=== PATIENT | male | born 1945 | race Caucasian/White ===

== ENCOUNTER 2017-02-17 01:45 | Emergency (ER) | payer MEDICARE, OTHER ==
[2017-02-17] MEDS ORDERED: Nitroglycerin 0.4 MG Tab.SL SL ONE (02:47)
[2017-02-17] MEDS ORDERED: Aspirin 81 MG Tab.Chew PO ONE ×2 (02:58)
[2017-02-17 03:02] LABS: CHLORIDE,CL 101 mEq/L (98-106); SODIUM,NA 138 mEq/L (136-145)
--- NOTE | 2017-02-17 03:11 | EDM.PDOC ---
<Valarie Cid - Last Filed: 02/17/17 09:17> ED HPI GENERAL MEDICAL PROBLEM - General Chief Complaint: General Stated Complaint: L SHOULDER, NECK, ELBOW PAIN Time Seen by Provider: 02/17/17 02:20 - Related Data Allergies Allergy/AdvReac Type Severity Reaction Status Date / Time No Known Allergies Allergy Verified 02/17/17 02:49 Home Meds: Home Meds Apixaban [Eliquis] 5 mg PO BID 02/17/17 [History] Finasteride [Finasteride] 5 mg PO DAILY 02/17/17 [History] Losartan/Hydrochlorothiazide [Losartan-HCTZ 100-25 MG] 1 tab PO DAILY 02/17/17 [ History] Lysine HCl [l-Lysine] 1,000 mg PO DAILY 02/17/17 [History] Meloxicam 15 mg PO DAILY #14 tablet 02/17/17 [Rx] Tamsulosin HCl [Tamsulosin HCl] 0.4 mg PO DAILY 02/17/17 [History] Testosterone [Testosterone] 5 gm PO DAILY 02/17/17 [History] glipiZIDE [Glipizide ER] 10 mg PO DAILY 02/17/17 [History] Course - Vital Signs Last Recorded V/S: Last Vital Signs Temp 35.8 C 02/17/17 08:37 Pulse 65 02/17/17 08:37 Resp 20 02/17/17 08:37 BP 137/72 02/17/17 08:37 Pulse Ox 95 02/17/17 08:37 - Orders/Labs/Meds Orders: Active Orders 24 hr Category Date Time Status Telemetry Monitoring [Cardiac Monitoring] [RC] . Care 02/17/17 01:00 Active DIRECTED Chest 2V [CR] Stat Exams 02/17/17 02:27 Taken Shoulder Comp Lt [CR] Stat Exams 02/17/17 08:40 Taken Labs: Laboratory Tests 02/17/17 02/17/17 02/17/17 Range/Units 02:31 02:31 02:31 WBC 6.1 (5.0-10.0) 10^3/uL RBC 4.85 (4.50-6.00) 10^6/uL Hgb 15.6 (14.0-18.0) g/dL Hct 45.6 (40.0-54.0) % MCV 94.0 (82.0-94.0) fL MCH 32.2 H (27.0-32.0) pg MCHC 34.2 (33.0-38.0) g/dL RDW Coeff of Lucian 13.4 (11.0-15.0) % Plt Count 183 (150-400) 10^3/uL Neut % (Auto) 63.0 (35-85) % Lymph % (Auto) 23.5 (10-55) % [place] % (Auto) 9.1 (0-16) % Eos % (Auto) 3.9 (0-5) % Baso % (Auto) 0.5 (0-3) % Neut # (Auto) 3.87 (1.80-7.00) 10^3/uL Lymph # (Auto) 1.44 (1.00-4.80) 10^3/uL [place] # (Auto) 0.56 (0.00-0.80) 10^3/uL Eos # (Auto) 0.24 (0.00-0.45) 10^3/uL Baso # (Auto) 0.03 10^3/uL PT 10.7 (9.7-12.3) SEC INR 0.99 (0.92-1.18) APTT 29.7 (24.5-30.9) SEC D-Dimer, Quantitative 0.49 (0.00-0.50) Sodium 138 (136-145) mEq/L Potassium 4.1 (3.5-5.0) mEq/L Chloride 101 (98-106) mEq/L Carbon Dioxide 30 (21-32) mmol/L BUN 17 (7-18) mg/dL Creatinine 1.2 (0.7-1.3) mg/dL Est Cr Clr Drug Dosing 52.25 mL/min Estimated GFR (MDRD) 59 L (>=60) mL/min Glucose 246 H (75-99) mg/dL Calcium 9.4 (8.4-10.1) mg/dL Magnesium 1.9 (1.8-2.4) mg/dL Lactate Dehydrogenase 167 (100-190) U/L Creatine Kinase 116 (35-232) U/L Troponin I < 0.017 (0.00-0.06) ng/mL 02/17/17 Range/Units 07:00 WBC (5.0-10.0) 10^3/uL RBC (4.50-6.00) 10^6/uL Hgb (14.0-18.0) g/dL Hct (40.0-54.0) % MCV (82.0-94.0) fL MCH (27.0-32.0) pg MCHC (33.0-38.0) g/dL RDW Coeff of Lucian (11.0-15.0) % Plt Count (150-400) 10^3/uL Neut % (Auto) (35-85) % Lymph % (Auto) (10-55) % [place] % (Auto) (0-16) % Eos % (Auto) (0-5) % Baso % (Auto) (0-3) % Neut # (Auto) (1.80-7.00) 10^3/uL Lymph # (Auto) (1.00-4.80) 10^3/uL [place] # (Auto) (0.00-0.80) 10^3/uL Eos # (Auto) (0.00-0.45) 10^3/uL Baso # (Auto) 10^3/uL PT (9.7-12.3) SEC INR (0.92-1.18) APTT (24.5-30.9) SEC D-Dimer, Quantitative (0.00-0.50) Sodium (136-145) mEq/L Potassium (3.5-5.0) mEq/L Chloride (98-106) mEq/L Carbon Dioxide (21-32) mmol/L BUN (7-18) mg/dL Creatinine (0.7-1.3) mg/dL Est Cr Clr Drug Dosing mL/min Estimated GFR (MDRD) (>=60) mL/min Glucose (75-99) mg/dL Calcium (8.4-10.1) mg/dL Magnesium (1.8-2.4) mg/dL Lactate Dehydrogenase (100-190) U/L Creatine Kinase (35-232) U/L Troponin I < 0.017 (0.00-0.06) ng/mL Meds: Medications Discontinued Medications Generic Name Dose Route Start Last Admin Trade Name Freq PRN Reason Stop Dose Admin Aspirin 81 mg 02/17/17 02:58 02/17/17 03:23 Aspirin PO 02/17/17 02:59 Not Given ONETIME ONE Aspirin 324 mg 02/17/17 02:58 02/17/17 03:02 Aspirin PO 02/17/17 02:59 324 mg ONETIME ONE Administration Hydromorphone HCl 1 mg 02/17/17 03:43 02/17/17 05:08 Dilaudid IVPUSH 1 mg Q1H PRN Administration Left arm pain Nitroglycerin 0.4 mg 02/17/17 02:47 02/17/17 02:52 Nitrostat SL 02/17/17 02:48 0.4 mg ONETIME ONE Administration - Re-Assessments/Exams Free Text/Narrative Re-Assessment/Exam: 02/17/17 09:00 Patient doing well this am. States pain down to a 2. Repeat troponin negative. Exam of his shoulder completed, negative. Shoulder xray relatively benign. Spoke with Dr. Urbano about exam/plan. Departure - Departure Time of Disposition: 09:18 Disposition: Home, Self-Care 01 Condition: Good Clinical Impression: Chest pain, Shoulder pain, left - Discharge Information Prescriptions: Meloxicam 15 mg PO DAILY #14 tablet Referrals: Gregorio Urbano MD [Primary Care Provider] - Forms: ED Department Discharge Additional Instructions: 1. Rest shoulder 2. Meloxicam 15 mg daily 3. Ice or heat as needed 4. Cardiolyte stress test on February 26 at [address] Urbano with any questions or concerns. - My Orders Last 24 Hours: My Active Orders 02/17/17 01:00 Telemetry Monitoring [Cardiac Monitoring] [RC] . DIRECTED 02/17/17 02:27 Chest 2V [CR] Stat - Assessment/Plan Last 24 Hours: My Active Orders 02/17/17 01:00 Telemetry Monitoring [Cardiac Monitoring] [RC] . DIRECTED 02/17/17 02:27 Chest 2V [CR] Stat <Kathya Gardner - Last Filed: 02/17/17 16:45> ED HPI GENERAL MEDICAL PROBLEM - General Source of Information: Reports: Patient, RN History Limitations: Reports: No Limitations - History of Present Illness INITIAL COMMENTS - FREE TEXT/NARRATIVE: Patient presents with left shoulder pain radiating to the neck and jaw region since 1400 this afternoon. He states was moving stuff from camper into the home when he noted pain 6/10 in this region . He states there was nothing he could do to relieve it and nothing seemed to make it worse. He denies diaphoresis, nausea or syncope. He indicated just rested through out the day. This evening he went to bed around 2330 and was unable to get comfortable persistent discomfort in the left arm radiating into his lateral neck and jaw region. He has not taken any medications at home. He affirms HTN, NIDDM-(mild) glucose 275 this am, Factor 5 Leiden and obesity. 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: Other (see below) (Rest) Left Neck Pain Score (Numeric/FACES): 7 Past Medical History HEENT History: Reports: Hard of Hearing, Impaired Vision Cardiovascular History: Reports: Blood Clots/VTE/DVT (Factor 5 Leiden), Hypertension Respiratory History: Reports: None Gastrointestinal History: Reports: None Genitourinary History: Reports: BPH, Prostate Disorder Musculoskeletal History: Reports: None, Arthritis, Osteoarthritis (Bilateral Knee Arthroplasty) Neurological History: Reports: None Psychiatric History: Reports: None Endocrine/Metabolic History: Reports: Diabetes, Type II, Obesity/BMI 30+ Hematologic History: Reports: Anticoagulation Therapy, Bleeding Disorder Immunologic History: Reports: None - Infectious Disease History Infectious Disease History: Reports: None - Past Surgical History GI Surgical History: Reports: Cholecystectomy Musculoskeletal Surgical History: Reports: Joint Replacement, Knee Replacement ( L Ankle recoonstruction) Social & Family History - Family History Family Medical History: Noncontributory - Tobacco Use Smoking Status *Q: Former Smoker Tobacco Use Within Last Twelve Months: No - Tobacco Core Measures Tobacco Use/Smoking Within Last 30 Days: No - Caffeine Use Caffeine Use: Reports: Coffee - Alcohol Use Alcohol Use History: Yes Alcohol Use Frequency: Rarely - Living Situation & Occupation Living situation: Reports: , with Spouse Occupation: Retired ED ROS GENERAL - Review of Systems Review Of Systems: See Below Constitutional: Reports: No Symptoms HEENT: Reports: Glasses Respiratory: Reports: No Symptoms Cardiovascular: Reports: Other (Left arm radiating to neck and jaw) Endocrine: Reports: High Glucose GI/Abdominal: Reports: No Symptoms : Reports: Frequency Musculoskeletal: Reports: Neck Pain, Shoulder Pain, Arm Pain, Muscle Pain Skin: Reports: No Symptoms Neurological: Reports: No Symptoms Psychiatric: Reports: No Symptoms Hematologic/Lymphatic: Reports: Other (Factor 5 Leiden) Immunologic: Reports: No Symptoms ED EXAM, GENERAL - Physical Exam Exam: See Below Exam Limited By: No Limitations General Appearance: Alert, WD/WN, Mild Distress Eye Exam: Bilateral Eye: EOMI, Normal Fundi, Normal Inspection, PERRL Ears: Normal External Exam, Normal Canal, Hearing Grossly Normal Ear Exam: Bilateral Ear: Auricle Normal, Canal Normal, TM normal Nose: Normal Inspection, Normal Mucosa, No Blood Throat/Mouth: Normal Inspection, Normal Lips, Normal Teeth, Normal Gums, Normal Oropharynx, Normal Voice, No Airway Compromise Head: Atraumatic, Normocephalic Neck: Normal Inspection, Supple, Non-Tender, Full Range of Motion. No: Carotid Bruit, Limited Range of Motion Respiratory/Chest: No Respiratory Distress, Lungs Clear, Normal Breath Sounds, No Accessory Muscle Use, Chest Non-Tender Cardiovascular: Normal Peripheral Pulses, Regular Rate, Rhythm, No Edema, No Gallop, No JVD, No Murmur, No Rub Peripheral Pulses: 2+: Carotid (L), Carotid (R), Brachial (L), Brachial (R), Radial (L), Radial (R), Dorsalis Pedis (L), Dorsalis Pedis (R) GI/Abdominal: Non-Tender (Male) Exam: Deferred Rectal (Males) Exam: Deferred Back Exam: Normal Inspection, Full Range of Motion Extremities: Normal Inspection, Normal Range of Motion, Non-Tender, No Pedal Edema, Normal Capillary Refill (No exacerbation of Left shoulder arm pain with movement) Neurological: Alert, Oriented, CN II-XII Intact, Normal Cognition, Normal Gait, Normal Reflexes, No Motor/Sensory Deficits Psychiatric: Normal Affect, Normal Mood Skin Exam: Warm, Dry, Intact, Normal Color, No Rash Lymphatic: No Adenopathy EKG INTERPRETATION EKG Date: 02/17/17 Rhythm: NSR (1 st degree V Block) - Problem List & Annotations (1) Neck pain on left side SNOMED Code(s): 88275255 Code(s): M54.2 - CERVICALGIA Status: Acute (2) Jaw pain SNOMED Code(s): 988803833 Code(s): R68.84 - JAW PAIN Status: Acute (3) Diabetes SNOMED Code(s): 59225286 Code(s): E11.9 - TYPE 2 DIABETES MELLITUS WITHOUT COMPLICATIONS Status: Acute Qualifiers: Diabetes mellitus type: type 2 - Problem List Review Problem List Initiated/Reviewed/Updated: Yes - Assessment/Plan Assessment:: Acute pain radiating to left neck and jaw. Diabetes/Poorly controlled HTN Factor 5 Leiden Obesity Plan: Will extended ER for Observation and pain control. Repeat Troponin @ 0700. Evaluation Dr. Urbano in am.
[2017-02-17] MEDS: HYDROmorphone 1 MG/ML Syringe IVPUSH PRN ×2 (03:51→05:08)
[2017-02-17 08:38] VITALS: BP 137/72
== END 2017-02-17 10:25 | disposition home or self-care (01) ==
LOC: CC.ED 01:45
DX: R07.9 Chest pain, unspecified (principal); M25.512 Pain in left shoulder; I10 Essential (primary) hypertension; E11.9 Type 2 diabetes mellitus without complications; E66.9 Obesity, unspecified; M19.90 Unspecified osteoarthritis, unspecified site; Z90.49 Acquired absence of other specified parts of digestive tract; Z79.899 Other long term (current) drug therapy
CPT/HCPCS: 36415; 71020; 73030; 80048; 82550; 83615; 83735; 84484; 85025; 85379; 85610; 85730; 96374; 96375; 96376; 99283; 99285; A9270; J1170; 93005; 93010

== ENCOUNTER 2017-12-04 11:15 | Emergency (ER) | payer MEDICARE, OTHER ==
[2017-12-04 11:25] VITALS: BP 149/87
[2017-12-04] MEDS: Ketorolac 10 MG Tab PO ONE (12:01)
--- NOTE | 2017-12-04 13:18 | EDM.PDOC ---
ED HPI GENERAL MEDICAL PROBLEM - General Chief Complaint: Lower Extremity Injury/Pain Stated Complaint: FELL OFF LADDER Time Seen by Provider: 12/04/17 11:50 - History of Present Illness INITIAL COMMENTS - FREE TEXT/NARRATIVE: Swetha is a 72-year-old male who presents to the ED via private vehicle with c/o left knee pain after falling off a ladder. He reports the injury happened 2 days ago and the pain has since worsened. He reports he has had bilateral TKA so he is worried about the hardware. He reports the pain is in his medial distal aspect of his knee. He reports he has been taking Tylenol without relief. Denies any N/T, redness, open sores. Denies any other injuries and LOC with fall. He denies hitting his head. 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: Reports: Acetaminophen Left Knee Pain Score (Numeric/FACES): 9 - Related Data Allergies Allergy/AdvReac Type Severity Reaction Status Date / Time No Known Allergies Allergy Verified 12/04/17 11:19 Home Meds: Home Meds Apixaban [Eliquis] 5 mg PO BID 02/17/17 [History] Finasteride 5 mg PO DAILY 02/17/17 [History] Losartan/Hydrochlorothiazide [Losartan-HCTZ 100-25 MG] 1 tab PO DAILY 02/17/17 [ History] Lysine HCl [l-Lysine] 1,000 mg PO DAILY 02/17/17 [History] Tamsulosin HCl 0.4 mg PO DAILY 02/17/17 [History] glipiZIDE [Glipizide ER] 10 mg PO DAILY 02/17/17 [History] Insulin Glarg,Human.Rec.Analog [Lantus Solostar] 50 units SUBCUT BEDTIME [History] Meloxicam 15 mg PO BID #20 tablet 12/04/17 [Rx] SitaGLIPtin [Januvia] 50 mg PO DAILY 12/04/17 [History] Past Medical History HEENT History: Reports: Hard of Hearing, Impaired Vision Cardiovascular History: Reports: Blood Clots/VTE/DVT, Hypertension Respiratory History: Reports: None Gastrointestinal History: Reports: None Genitourinary History: Reports: BPH, Prostate Disorder Musculoskeletal History: Reports: None, Arthritis, Osteoarthritis Neurological History: Reports: None Psychiatric History: Reports: None Endocrine/Metabolic History: Reports: Diabetes, Type II, Obesity/BMI 30+ Hematologic History: Reports: Anticoagulation Therapy, Bleeding Disorder Immunologic History: Reports: None - Infectious Disease History Infectious Disease History: Reports: None - Past Surgical History GI Surgical History: Reports: Cholecystectomy Musculoskeletal Surgical History: Reports: Joint Replacement, Knee Replacement Social & Family History - Family History Family Medical History: Noncontributory - Tobacco Use Smoking Status *Q: Never Smoker - Caffeine Use Caffeine Use: Reports: Coffee - Alcohol Use Days Per Week of Alcohol Use: 7 Number of Drinks Per Day: 1 Total Drinks Per Week: 7 - Recreational Drug Use Recreational Drug Use: No - Living Situation & Occupation Living situation: Reports: , with Spouse Occupation: Retired Review of Systems - Review of Systems Review Of Systems: ROS reveals no pertinent complaints other than HPI. ED EXAM, GENERAL - Physical Exam Exam: See Below Exam Limited By: No Limitations General Appearance: Alert, WD/WN, No Apparent Distress Peripheral Pulses: 2+: Posterior Tibial (L), Dorsalis Pedis (L) Extremities: Normal Inspection, Normal Range of Motion, Non-Tender, No Pedal Edema, Normal Capillary Refill, Joint Swelling (mild to L knee). No: Increased Warmth, Redness Neurological: Alert, Oriented, CN II-XII Intact, Normal Cognition, Normal Gait, Normal Reflexes, No Motor/Sensory Deficits Psychiatric: Normal Affect, Normal Mood Skin Exam: Warm, Dry, Intact, Normal Color, No Rash Course - Vital Signs Last Recorded V/S: Last Vital Signs Temp 95.9 F 12/04/17 11:22 Pulse 80 12/04/17 11:22 Resp 16 12/04/17 11:22 BP 149/87 H 12/04/17 11:22 Pulse Ox 99 12/04/17 11:22 - Orders/Labs/Meds Orders: Active Orders 24 hr Category Date Time Status Knee 3V Lt [CR] Routine Exams 12/04/17 Taken Meds: Medications Discontinued Medications Generic Name Dose Route Start Last Admin Trade Name Freq PRN Reason Stop Dose Admin Ketorolac Tromethamine 10 mg 12/04/17 11:58 12/04/17 12:01 Toradol PO 12/04/17 11:59 10 mg ONETIME ONE Administration - Re-Assessments/Exams Free Text/Narrative Re-Assessment/Exam: Xray results discussed with patient and . Xray negative for any acute findings. Departure - Departure Time of Disposition: 13:13 Disposition: Home, Self-Care 01 Condition: Good Clinical Impression: Left knee pain Qualifiers: Chronicity: acute Qualified Code(s): M25.562 - Pain in left knee - Discharge Information *PRESCRIPTION DRUG MONITORING PROGRAM REVIEWED*: No *COPY OF PRESCRIPTION DRUG MONITORING REPORT IN PATIENT ANANT: No Prescriptions: Meloxicam 15 mg PO BID #20 tablet Instructions: Knee Pain, Adult Referrals: Gregorio Urbano MD [Primary Care Provider] - Forms: ED Department Discharge Additional Instructions: Xray negative for evidence of hardware loosening, fracture, or other complication Ice knee at least 3 times daily for 20 minutes at a time until pain improves Augustus wrap to left knee during the day Elevate extremity when able Weight bearing as tolerated to LLE Meloxicam as needed for pain. Follow INR as directed by PCP Follow up with PCP if symptoms worsen or do not improve over the next week - My Orders Last 24 Hours: My Active Orders 12/04/17 Knee 3V Lt [CR] Routine - Assessment/Plan Last 24 Hours: My Active Orders 12/04/17 Knee 3V Lt [CR] Routine
== END 2017-12-04 13:20 | disposition home or self-care (01) ==
LOC: CC.ED 11:15
DX: M25.562 Pain in left knee (principal); I10 Essential (primary) hypertension; E11.9 Type 2 diabetes mellitus without complications; W11.XXXA Fall on and from ladder, initial encounter; Z79.899 Other long term (current) drug therapy
CPT/HCPCS: 73562-LT; 99283; A9270-GY

== ENCOUNTER 2020-12-16 11:35 | Observation (INO) | payer MEDICARE, OTHER ==
[2020-12-16] MEDS ORDERED: Nitroglycerin 0.4 MG Tab.SL SL PRN (12:07)
[2020-12-16] MEDS ORDERED: Aspirin 81 MG Tab.Chew PO ONE (12:09)
--- NOTE | 2020-12-16 12:12 | EDM.PDOC ---
ED HPI GENERAL MEDICAL PROBLEM - General Chief Complaint: General Stated Complaint: arm pain,headache,upset stomach Time Seen by Provider: 12/16/20 11:35 Source of Information: Reports: Patient History Limitations: Reports: No Limitations - History of Present Illness INITIAL COMMENTS - FREE TEXT/NARRATIVE: Swetha is a 75 year old male who presents to ER with complaints of left s houlder/jaw pain/anterior chest pain. States has had off an on for 2 days now but was worse this am. Pain occurs at rest. Does feel short of breath and nauseated with the pain. No diaphoresis. Pain is worse in the shoulder and left side of his neck. Notes left anterior chest pain but admits that is more mild. No heartburn or belching. No abdominal pain or vomiting. Denies any recent trauma to shoulder, no lifting injuries. History of hypertension/hyperlipidemia/diabetes. Last stress test was 2016. Duration: Day(s):, Getting Worse Location: Reports: Chest Quality: Reports: Ache Severity: Moderate Improves with: Reports: None Associated Symptoms: Reports: Chest Pain, Nausea/Vomiting, Shortness of Breath. 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 (see below) Other Treatments FRONT END WEB DESIGNER: none Left Upper Arm Pain Score (Numeric/FACES): 7 - Related Data Allergies Allergy/AdvReac Type Severity Reaction Status Date / Time nerve blocks Allergy Anaphylactic Uncoded 12/16/20 11:40 Shock Home Meds: Home Meds Apixaban [Eliquis] 5 mg PO BID 02/17/17 [History] Finasteride 5 mg PO DAILY 02/17/17 [History] Losartan/Hydrochlorothiazide [Losartan-HCTZ 100-25 MG] 1 tab PO DAILY 02/17/17 [History] Lysine HCl [l-Lysine] 1,000 mg PO DAILY 02/17/17 [History] Tamsulosin HCl 0.8 mg PO BEDTIME 02/17/17 [History] SitaGLIPtin [Januvia] 100 mg PO DAILY 12/04/17 [History] Insulin Lispro Prot/Lispro [HumaLOG Mix 75-25] 30 units SUBCUT QPM 12/16/20 [History] Insulin Lispro Prot/Lispro [HumaLOG Mix 75-25] 60 units SUBCUT QAM 12/16/20 [History] Simvastatin [Zocor] 20 mg PO BEDTIME 12/16/20 [History] amLODIPine Besylate [Amlodipine Besylate] 5 mg PO DAILY 12/16/20 [History] Past Medical History HEENT History: Reports: Hard of Hearing, Impaired Vision Cardiovascular History: Reports: Blood Clots/VTE/DVT, Hypertension Respiratory History: Reports: None Gastrointestinal History: Reports: None Genitourinary History: Reports: BPH, Prostate Disorder Musculoskeletal History: Reports: None, Arthritis, Osteoarthritis Neurological History: Reports: None Psychiatric History: Reports: None Endocrine/Metabolic History: Reports: Diabetes, Type II, Obesity/BMI 30+ Hematologic History: Reports: Anticoagulation Therapy, Bleeding Disorder Immunologic History: Reports: None - Infectious Disease History Infectious Disease History: Reports: None - Past Surgical History GI Surgical History: Reports: Cholecystectomy Musculoskeletal Surgical History: Reports: Joint Replacement, Knee Replacement Social & Family History - Family History Family Medical History: No Pertinent Family History - Tobacco Use Tobacco Use Status *Q: Unknown Ever Used Tobacco - Caffeine Use Caffeine Use: Reports: Coffee - Living Situation & Occupation Living situation: Reports: , with Spouse Occupation: Retired ED ROS GENERAL - Review of Systems Review Of Systems: See Below Constitutional: Denies: Fever, Chills, Malaise, Weakness, Decreased Appetite HEENT: Denies: Ear Pain, Rhinitis, Sinus Problem, Throat Pain, Vertigo Respiratory: Reports: Shortness of Breath. Denies: Cough Cardiovascular: Reports: Chest Pain, Lightheadedness. Denies: Edema Endocrine: Denies: Fatigue GI/Abdominal: Reports: Nausea. Denies: Abdominal Pain, Constipation, Diarrhea, Vomiting : Reports: No Symptoms Musculoskeletal: Reports: Neck Pain Skin: Reports: No Symptoms Neurological: Reports: No Symptoms Psychiatric: Reports: No Symptoms ED EXAM, GENERAL - Physical Exam Exam: See Below Exam Limited By: No Limitations General Appearance: Alert, WD/WN, No Apparent Distress Ears: Normal External Exam, Normal TMs Nose: Normal Inspection, Normal Mucosa, No Blood Throat/Mouth: Normal Inspection, Normal Oropharynx Head: Normocephalic Neck: Normal Inspection, Supple, Non-Tender Respiratory/Chest: No Respiratory Distress, Lungs Clear, Normal Breath Sounds Cardiovascular: Regular Rate, Rhythm GI/Abdominal: Normal Bowel Sounds, Soft, Non-Tender Extremities: Normal Inspection, Pedal Edema (trace) Neurological: Alert, Oriented Skin Exam: Warm, Dry #1 Interpretation EKG Date: 12/16/20 Rhythm: NSR [place]: Normal P-Wave: Present QRS: Normal ST-T: Normal QT: Normal Comparison: No Change Course - Vital Signs Last Recorded V/S: Last Vital Signs Temp 96.1 F L 12/16/20 11:35 Pulse 92 12/16/20 11:35 Resp 22 H 12/16/20 11:35 BP 166/87 H 12/16/20 11:35 Pulse Ox 96 12/16/20 11:35 - Orders/Labs/Meds Orders: Active Orders 24 hr Category Date Time Status EKG Documentation Completion [RC] STAT Care 12/16/20 11:44 Active Chest 2V [CR] Stat Exams 12/16/20 11:41 Ordered CBC WITH AUTO DIFF [HEME] Stat Lab 12/16/20 11:41 Ordered COMPREHENSIVE METABOLIC PN,CMP [CHEM] Stat Lab 12/16/20 11:41 Ordered CREATINE KINASE,CK [CHEM] Stat Lab 12/16/20 11:41 Ordered LACTATE DEHYDROGENASE,LDH [CHEM] Stat Lab 12/16/20 11:41 Ordered TROPONIN I [CHEM] Stat Lab 12/16/20 11:41 Ordered EKG 12 Lead [EK] Stat Ther 12/16/20 11:41 Ordered - Re-Assessments/Exams Free Text/Narrative Re-Assessment/Exam: 12/16/20 1300 labs all unremarkable. EKG unremarkable. Was given a nitro with drop in his blood pressure but did improve his pain to a 5. Did contact Dr. suh about admission. Advised if blood pressure high, start metoprolol. Will admit observation, repeat labs in 4 hours. Continue cardiac monitoring. Arrange for possible stress test tomorrow. Patient agrees with plan. Departure - Departure Time of Disposition: 13:20 Disposition: Refer to Observation Condition: Fair Clinical Impression: Angina at rest - Discharge Information *PRESCRIPTION DRUG MONITORING PROGRAM REVIEWED*: No *COPY OF PRESCRIPTION DRUG MONITORING REPORT IN PATIENT ANANT: No Sepsis Event Note (ED) - Evaluation Sepsis Screening Result: No Definite Risk - Focused Exam Vital Signs: Vital Signs Temp Pulse Resp BP Pulse Ox 12/16/20 11:35 96.1 F L 92 22 H 166/87 H 96 - Problem List & Annotations (1) Angina at rest SNOMED Code(s): 413003900 Code(s): I20.8 - OTHER FORMS OF ANGINA PECTORIS Status: Acute Priority: High Current Visit: Yes - Problem List Review Problem List Initiated/Reviewed/Updated: Yes - My Orders Last 24 Hours: My Active Orders 12/16/20 11:41 Chest 2V [CR] Stat CBC WITH AUTO DIFF [HEME] Stat COMPREHENSIVE METABOLIC PN,CMP [CHEM] Stat CREATINE KINASE,CK [CHEM] Stat LACTATE DEHYDROGENASE,LDH [CHEM] Stat TROPONIN I [CHEM] Stat EKG 12 Lead [EK] Stat 12/16/20 11:44 EKG Documentation Completion [RC] STAT - Assessment/Plan Admission H&P: Please use this note as an admission H&P Last 24 Hours: My Active Orders 12/16/20 11:41 Chest 2V [CR] Stat CBC WITH AUTO DIFF [HEME] Stat COMPREHENSIVE METABOLIC PN,CMP [CHEM] Stat CREATINE KINASE,CK [CHEM] Stat LACTATE DEHYDROGENASE,LDH [CHEM] Stat TROPONIN I [CHEM] Stat EKG 12 Lead [EK] Stat 12/16/20 11:44 EKG Documentation Completion [RC] STAT Assessment:: Angina at rest Plan: Cardiac monitoring, repeat labs in [address] suh aware of admission
[2020-12-16 12:28] LABS: CHLORIDE,CL 99 mEq/L (98-106); SODIUM,NA 135 mEq/L (136-145)
[2020-12-16] MEDS ORDERED: Acetaminophen 325 MG Tab PO PRN (13:20)
[2020-12-16] MEDS ORDERED: Sodium Chloride 0.9% 10 ML Syringe FLUSH PRN (13:20)
[2020-12-16] MEDS ORDERED: Ondansetron 4 MG Tab.DIS PO PRN (13:20)
[2020-12-16] MEDS ORDERED: 50% Dextrose in Water 50 ML Syringe IVPUSH PRN (14:38)
[2020-12-16] MEDS ORDERED: Glucagon,Human Recombinant 1 MG Vial IM PRN (14:38)
[2020-12-16] MEDS: Insulin NPH HUM/REG Insulin HM 100 UNIT/ML 3 ML Vial SQ SCH ×2 (17:31→21:07)
[2020-12-16] MEDS ORDERED: INSULIN LISPRO PROT SUBCUT SCH (20:00)
[2020-12-16] MEDS ORDERED: LISPRO SUBCUT SCH (20:00)
[2020-12-17 07:28] LABS: CHLORIDE,CL 103 mEq/L (98-106); SODIUM,NA 138 mEq/L (136-145)
[2020-12-17] MEDS ORDERED: LISPRO SUBCUT SCH (08:00)
[2020-12-17] MEDS ORDERED: Insulin NPH HUM/REG Insulin HM 100 UNIT/ML 3 ML Vial SQ SCH (08:00)
[2020-12-17] MEDS ORDERED: INSULIN LISPRO PROT SUBCUT SCH (08:00)
[2020-12-17 08:24] VITALS: BP 129/59; PULSE 68
[2020-12-17] MEDS ORDERED: Finasteride 5 MG Tab **PTOM PO SCH (09:00)
[2020-12-17] MEDS ORDERED: AMLODIPINE BESYLATE 5 MG PO SCH (09:00)
[2020-12-17] MEDS ORDERED: LOSARTAN PO SCH (09:00)
[2020-12-17] MEDS ORDERED: HYDROCHLOROTHIAZIDE PO SCH (09:00)
[2020-12-17] MEDS ORDERED: LYSINE HCL 500 MG PO SCH (09:00)
[2020-12-17] MEDS ORDERED: SITAGLIPTIN 100 MG PO SCH (09:00)
[2020-12-17] MEDS ORDERED: Apixaban 5 MG Tab **PTOM PO SCH (09:00)
[2020-12-17] MEDS ORDERED: Tamsulosin 0.4 MG Cap.ER **PTOM PO SCH (20:00)
[2020-12-17] MEDS ORDERED: Simvastatin 20 MG Tab PO SCH (20:00)
--- NOTE | 2020-12-19 16:12 | DISCH ---
ADMISSION DIAGNOSES: 1. Atypical chest pain. 2. Possible angina. DISCHARGE DIAGNOSIS: 1. ATYPICAL CHEST PAIN. 2. HYPERTENSION. 3. TYPE 2 DIABETES, REQUIRING INSULIN. 4. HYPERLIPIDEMIA. HISTORY: Swetha is a 75-year-old male, well known to me, presented with left shoulder, jaw, and anterior chest pain. It had been on and off for a few weeks. He felt the pain occurred at rest when he talked to Tonya Cid on admit. When I discussed this with him, he said it seems to be worse in the shoulder and down into his arm at times, and admits that it usually takes some degree of exercise to bring it on. He does not report any real heaviness or shortness of breath associated with Tonya who saw him and did an appropriate evaluation which was negative for any cardiac ischemia with a negative EKG and troponin. His blood pressure was up slightly and she admitted him to observation for this. HOSPITAL COURSE: The patient was stable while here. His blood pressures were well-controlled throughout his entire stay. He had no further chest pain. He mainly complained of some left shoulder pain and did have some numbness or tingling running down his arm at times, but essentially has had no further pain since he has been here. He had a followup EKG and cardiac enzymes, they were normal. We are going to set him up for a Lexiscan this . I will see him at that time and followup as well. At this time, the patient is stable for discharge. COMPLICATIONS: During stay were none. CONSULTATIONS: None. DISPOSITION: Discharged home. MAGNUS/GIANA /[id number]
== END 2020-12-17 11:31 | disposition home or self-care (01) ==
LOC: CC.ED 11:35 → CC.MS 12:49 → UNDOADMOB 12:49 → CC.MS 12:50 → UNDODISOB 12-17 11:31
PROVIDERS: ADMIT Physician Assistant Medical; ATTEND Family Medicine
DX: I20.8 Other forms of angina pectoris (principal); I10 Essential (primary) hypertension; E78.5 Hyperlipidemia, unspecified; E11.9 Type 2 diabetes mellitus without complications; E66.9 Obesity, unspecified; Z68.37 Body mass index [BMI] 37.0-37.9, adult; Z88.8 Allergy status to other drugs, medicaments and biological substances; Z79.4 Long term (current) use of insulin
CPT/HCPCS: 36415; 71046; 80048; 80053; 82550; 83615; 84484; 85025; 93005; 93010; 99217; 99220; 99285-25; A9270-GY; G0378; J1815-GY